=== PATIENT | male | born 1995 | race Caucasian/White ===

== ENCOUNTER 2020-02-12 13:41 | Emergency (ER) | payer OTHER ==
[~2020-02-12] VITALS: Ht 177.8 cm; Wt 111.1 kg
[2020-02-12 13:46] VITALS: BP 124/85; Ht 177.8 cm; Wt 111.1 kg
== END 2020-02-12 17:06 | disposition home or self-care (01) ==
LOC: ED 13:41
DX: S61.102A Unspecified open wound of left thumb with damage to nail, initial encounter (principal); W26.0XXA Contact with knife, initial encounter; Y93.89 Activity, other specified; Y92.89 Other specified places as the place of occurrence of the external cause; Y99.0 Civilian activity done for income or pay
CPT/HCPCS: 90715; J2001

== ENCOUNTER 2020-02-19 13:53 | Emergency (ER) | payer OTHER ==
[~2020-02-19] VITALS: Ht 175.3 cm; Wt 98.0 kg
[2020-02-19 14:04] VITALS: Ht 175.3 cm; Wt 98.0 kg
[2020-02-19 14:24] VITALS: BP 131/73
== END 2020-02-19 14:24 | disposition home or self-care (01) ==
LOC: ED 13:53
DX: S61.012D Laceration without foreign body of left thumb without damage to nail, subsequent encounter (principal); W45.8XXD Other foreign body or object entering through skin, subsequent encounter